=== PATIENT | female | born 1960 | race Caucasian/White ===

== ENCOUNTER 2024-10-20 14:10 | Emergency (ER) | payer MEDICARE ==
[~2024-10-20] VITALS: Ht 170.2 cm; Wt 88.6 kg
[2024-10-20] MEDS ORDERED: INCRUSE ELLI62.5 MCG IH (15:18)
[2024-10-20] MEDS ORDERED: EPINEPHRIN0.3 MG/0.3 IM (15:18)
[2024-10-20] MEDS ORDERED: MELOXICAM7.5 MG (15:18)
[2024-10-20] MEDS ORDERED: BACLOFEN20 MG PO (15:18)
[2024-10-20] MEDS ORDERED: OXYCODONE-ACET1 EAC1 PO (15:18)
[2024-10-20] MEDS ORDERED: HYDROXYZINE PAM50 MG (15:18)
[2024-10-20] MEDS ORDERED: HYDROXYZINE HCL25 MG (15:18)
[2024-10-20] MEDS ORDERED: VENTOLIN HFA18 GM (15:18)
[2024-10-20] MEDS ORDERED: ATORVASTATIN CA20 MG (15:19)
[2024-10-20] MEDS ORDERED: PREGABALIN100 MG (15:19)
[2024-10-20] MEDS ORDERED: SERTRALINE HCL100 MG (15:19)
[2024-10-20] MEDS ORDERED: LAMOTRIGINE200 M1 (15:19)
[2024-10-20] MEDS ORDERED: TRAZODONE HCL100 MG (15:19)
[2024-10-20] MEDS ORDERED: MONTELUKAST SOD10 MG (15:19)
[2024-10-20] MEDS ORDERED: FLUTICASONE PRO16 GM (15:20)
[2024-10-20] MEDS ORDERED: FLUTICASONE-SAL12 G2 (15:20)
[2024-10-20 16:29] VITALS: BP 126/75
[2024-10-20] MEDS ORDERED: ONDANSETRON 4 MG TAB ODT SL ONE (16:30)
[2024-10-20] MEDS ORDERED: OXYCODONE/APAP 5/325 TAB PO ONE (16:30)
== END 2024-10-20 16:37 | disposition home or self-care (01) ==
LOC: ED 14:10
DX: M25.512 Pain in left shoulder (principal); J44.89 Other specified chronic obstructive pulmonary disease; F43.10 Post-traumatic stress disorder, unspecified; Z79.51 Long term (current) use of inhaled steroids; Z79.899 Other long term (current) drug therapy; Z88.2 Allergy status to sulfonamides; Z88.8 Allergy status to other drugs, medicaments and biological substances
CPT/HCPCS: 73030; 99283; A9270